=== PATIENT | female | born 1995 ===

== ENCOUNTER 2018-04-24 19:58 | Emergency (ER) | payer SELFPAY ==
[2018-04-24 20:33] LABS: HCG,QUALITATIVE URINE POSITIVE (NEGATIVE)
[2018-04-24 20:37] LABS: SQUAMOUS EPITHIAL 23 /hpf (0-5); URINE BACTERIA RARE (<OCC); URINE BILIRUBIN NEGATIVE (NEGATIVE); URINE BLOOD NEGATIVE (NEGATIVE); URINE CLARITY Hazy (Clear); URINE COLOR Yellow (YELLOW); URINE GLUCOSE (UA) NORMAL (Normal); URINE PROTEIN NEGATIVE (NEGATIVE); URINE UROBILINOGEN NORMAL mg/dL (0.2-1.0)
[2018-04-24 20:40] LABS: URINE LEUKOCYTE ESTERASE 1+ Leu/uL (Negative)
[2018-04-24 21:08] LABS: BASO % 0.4 % (0.0-2.0); EOS # 0.1 K/uL (0.0-0.7); EOS % 1.2 % (0.0-4.0); HEMOGLOBIN 12.8 g/dL (11.0-16.0); LYMPH # 2.9 K/uL (1.0-4.3); LYMPH % 25.7 % (20.0-40.0); MEAN CELL VOLUME 88.7 fL (81.0-99.0); MEAN CORPUSCULAR HEMOGLOBIN 30.2 pg (27.0-31.0); MEAN CORPUSCULAR HGB CONC 34.1 g/dL (33.0-37.0); MEAN PLATELET VOLUME 10.5 fL (7.2-11.7); MONO # 0.7 K/uL (0.0-0.8); MONO % 6.5 % (0.0-10.0); NEUT # 7.4 K/uL (1.8-7.0); NEUT % 66.2 % (50.0-75.0); RBC 4.22 Mil/uL (3.80-5.20); RED CELL DISTRIBUTION WIDTH 13.9 % (11.5-14.5); WHITE BLOOD COUNT 11.2 K/uL (4.8-10.8)
[2018-04-24 21:23] LABS: ALB/GLOB RATIO 1.5 (1.0-2.1); ALBUMIN 4.5 g/dL (3.5-5.0); ALT/SGPT 19 U/L (9-52); AST/SGOT 18 U/L (14-36); BLOOD UREA NITROGEN 11 mg/dL (7-17); CALCIUM 9.2 mg/dl (8.6-10.4); GFR AFRICAN-AMERICAN > 60; GFR NON-AFRICAN AMERICAN > 60
--- NOTE | 2018-04-24 21:57 | C.PDOC ---
History Of Present Illness 22 year old female presents to the ER for a " confirmation". Patient states that 1.5 weeks ago she took a home test that was positive, however, during the weekend she had pink spotting. Patient reports that today the spotting has turned brown and she also began having pelvic cramps. Denies dysuria, urinary frequency, vaginal discharge, nausea, vomiting, fever, or chills. She is currently on vitamins but has not had any care. Time Seen by Provider: 04/24/18 20:08 Chief Complaint (Nursing): Female Genitourinary History Per: Patient History/Exam Limitations: no limitations Onset/Duration Of Symptoms: Hrs Current Symptoms Are (Timing): Still Present Quality Of Discomfort: Unable To Describe Associated Symptoms: Other (Vaginal spotting, pelvic cramping). denies: Fever, Chills, Nausea, Vomiting, Urinary Symptoms Alleviating Factors: None Recent travel outside of the [place]: No : 2 Para: 0 Past Medical History Reviewed: Historical Data, Nursing Documentation, Vital Signs Vital Signs: Last Vital Signs Temp 98.9 F 04/24/18 23:11 Pulse 75 04/24/18 23:11 Resp 18 04/24/18 23:11 BP 135/71 04/24/18 23:11 Pulse Ox 100 04/25/18 00:43 - Medical History PMH: Chronic Pain (lower back) Family History: States: Unknown Family Hx - Social History Hx Alcohol Use: No Hx Substance Use: No - Immunization History Hx Tetanus Toxoid Vaccination: No Hx Influenza Vaccination: No Hx Pneumococcal Vaccination: No Review Of Systems Constitutional: Negative for: Fever, Chills Gastrointestinal: Negative for: Nausea, Vomiting Genitourinary: Positive for: Other (Vaginal spotting, pelvic cramping). Negative for: Dysuria, Frequency Physical Exam - Physical Exam Appears: Well, Non-toxic, No Acute Distress Skin: Normal Color, Warm, Dry Head: Atraumatic, Normacephalic Eye(s): bilateral: Normal Inspection, EOMI Nose: Normal Oral Mucosa: Moist Neck: Normal ROM, Supple Chest: Symmetrical, No Tenderness Cardiovascular: Rhythm Regular Respiratory: Normal Breath Sounds, No Rales, No Rhonchi, No Wheezing Gastrointestinal/Abdominal: Soft, Tenderness (suprapubic tenderness) Back: No CVA Tenderness, No Vertebral Tenderness Neurological/Psych: Oriented x3, Normal Speech ED Course And Treatment - Laboratory Results Result Diagrams: 04/24/18 21:03 04/24/18 21:03 O2 Sat by Pulse Oximetry: 100 (Room air) Pulse Ox Interpretation: Normal - CT Scan/US Transvaginal US Other Rad Studies (CT/US): Read By Radiologist, Radiology Report Reviewed CT/US Interpretation: EXAM: US First Trimester, Transabdominal. US , Transvaginal. EXAM DATE/TIME: 04/24/2018 8:50 PM. CLINICAL HISTORY : 22 years old, female; Signs and symptoms; Lmp or gestational age (in weeks): [id number];. Antepartum complications; Bleeding; . TECHNIQUE: Real- time transabdominal and transvaginal obstetrical ultrasound of the maternal pelvis and a first. trimester with image documentation. Transvaginal imaging was used for better evaluation. of the fetus and adnexa. COMPARISON: There are no prior studies for comparison. FINDINGS: Gestation: There is a single intrauterine gestation. Gestational sac configuration is deformed. Gestational sac has mean diameter 15.7 mm.[place] rump length measures 10.4 mm.A yolk sac is. present, internal diameter measures 2.5 mm. There is no embryonic cardiac activity. Uterus: Uterus is anteflexed. Uterus measures approximately 9.3 x 4.6 x 4.6 cm. Cervix measures. approximately 3.3 cm in length. Ovaries: Right ovary measures approximately 4.6 x 2.2 x 3.3 cm.There are multiple small follicles. There is a corpus luteum in the right ovary There is intraovarian blood flow. Left ovary measures. approximately 3.2 x 1.9 x 2.6 cm. There are multiple small follicles. There is intraovarian blood flow. Free fluid: There is no free fluid. Bladder: Bladder is partially distended. IMPRESSION: Intrauterine embryonic demise at approximately 7 weeks 1 day Progress Note: Blood work and urinalysis ordered, HCG was positive, US ordered. Tylenol administered. Case discussed with Dr Camargo who instructs outpt follow up. On reevaluation, patient is resting comfortably in the ER, she reports improvement of her pelvic cramping, abdomen remains soft and nontender. Discussed results of US with patient and advised to follow up with OB for management. Disposition - Disposition Disposition: HOME/ ROUTINE Disposition Time: 23:02 Condition: STABLE Additional Instructions: Follow up with your OB in 2-3 days for re[place] [id number]. Return to ER if symptoms persist or worsen. Instructions: Miscarriage (DC) Forms: [facility] (Dominican) - Clinical Impression Clinical Impression: Spontaneous - PA / [employer]PER[employer]OR / Resident Statement MD/DO has reviewed & agrees with the documentation as recorded. - Scribe Statement The provider has reviewed the documentation as recorded by the Scribe Juan Nolasco All medical record entries made by the Scribe were at my direction and personally dictated by me. I have reviewed the chart and agree that the record accurately reflects my personal performance of the history, physical exam, medical decision making, and the department course for this patient. I have also personally directed, reviewed, and agree with the discharge instructions and disposition.
--- NOTE | 2018-04-24 22:56 | US ---
EXAM: US First Trimester, Transabdominal US , Transvaginal EXAM DATE/TIME: 04/24/2018 8:50 PM CLINICAL HISTORY: 22 years old, female; Signs and symptoms; Lmp or gestational age (in weeks): [id number]; Antepartum complications; Bleeding; TECHNIQUE: Real-time transabdominal and transvaginal obstetrical ultrasound of the maternal pelvis and a first trimester with image documentation. Transvaginal imaging was used for better evaluation of the fetus and adnexa. COMPARISON: There are no prior studies for comparison. FINDINGS: Gestation: There is a single intrauterine gestation. Gestational sac configuration is deformed. Gestational sac has mean diameter 15.7 mm.[place] rump length measures 10.4 mm.A yolk sac is present, internal diameter measures 2.5 mm. There is no embryonic cardiac activity Uterus: Uterus is anteflexed. Uterus measures approximately 9.3 x 4.6 x 4.6 cm. Cervix measures approximately 3.3 cm in length. Ovaries: Right ovary measures approximately 4.6 x 2.2 x 3.3 cm.There are multiple small follicles. There is a corpus luteum in the right ovary There is intraovarian blood flow. Left ovary measures approximately 3.2 x 1.9 x 2.6 cm. There are multiple small follicles. There is intraovarian blood flow. Free fluid: There is no free fluid. Bladder: Bladder is partially distended. IMPRESSION: Intrauterine embryonic demise at approximately 7 weeks 1 day
[2018-04-24 23:12] VITALS: BP 135/71; PULSE 75; RESP 18; TEMP 98.9
[2018-04-25 00:43] VITALS: O2SAT 100
== END 2018-04-24 23:12 | disposition home or self-care (01) ==
LOC: C.ER 19:58
DX: O03.9 Complete or unspecified spontaneous abortion without complication (principal)